=== PATIENT | male | born 1970 ===

== ENCOUNTER 2017-11-08 06:53 | Emergency (ER) | payer BC ==
[2017-11-08 07:20] VITALS: TEMP 98.1; O2SAT 96
--- NOTE | 2017-11-08 07:47 | C.PDOC ---
History Of Present Illness 47 y/o M c PMHx HLD p/w rectal pain x 4 months. Pain is described as severe, deep inside, associated with a yellow discharge from the anus, constant, radiating to scrotum. Patient states this pain has been keeping him up at night. He denies fever, chills, chest pain, dyspnea, palpitations, nausea, vomiting, abdominal pain, bleeding, rash, dysuria. Patient has been to other ED twice and followed up with GI, had colonoscopy and endoscopy and CT scan without any abnormal findings as per patient. He has been on Cipro, analgesia, AZO without any relief. PMD Yonny Sim Time Seen by Provider: 11/08/17 07:33 Chief Complaint (Nursing): Male Genitourinary Past Medical History Vital Signs: Last Vital Signs Temp 98.1 F 11/08/17 07:15 Pulse 76 11/08/17 09:52 Resp 18 11/08/17 09:52 BP 115/69 11/08/17 09:52 Pulse Ox 96 11/08/17 10:14 Family History: States: No Known Family Hx - Social History Hx Alcohol Use: No Hx Substance Use: No - Immunization History Hx Tetanus Toxoid Vaccination: Yes Hx Influenza Vaccination: Yes Hx Pneumococcal Vaccination: No Review Of Systems Except As Marked, All Systems Reviewed And Found Negative. Constitutional: Negative for: Fever Cardiovascular: Negative for: Chest Pain Physical Exam - Physical Exam Additional Physical Exam Comments: Gen: NAD Head: NC Eyes: No scleral icterus ENT: MMM Neck: Supple Chest: No tenderness CV: Regular rate Lungs: CTA b/l Abd: Soft, NT Back: No CVA tenderness : Uncircumcised, no discharge, no erythema, no swelling, no testicular tenderness or swelling Rectal: No mass, bleeding, discharge, fissures Skin: No rash Neuro: Alert, no focal deficit ED Course And Treatment - Laboratory Results Result Diagrams: 11/08/17 09:29 11/08/17 09:29 O2 Sat by Pulse Oximetry: 96 Medical Decision Making Medical Decision Making: Patient with significant evaluation for these symptoms. Will send today for testicular ultrasound and check labs/urine. In absence of any findings today, will recommend that patient follow up with urology. Disposition - Disposition Referrals: Nazario Mathis MD [Staff Provider] - Disposition: HOME/ ROUTINE Disposition Time: 10:14 Condition: STABLE Additional Instructions: Accession No. 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 COMPARISON: None Available. FINDINGS: RIGHT TESTICLE: Measures 4.79 x 2 x 2.9 cm. Normal echotexture and flow. RIGHT EPIDIDYMIS: Epididymal head measures 1.1 x 0.7 x 0.6 cm. There is a cyst seen at the right epididymis measures 0.44 x 0.4 x 0.4 centimeter. LEFT TESTICLE: Measures 4.8 x 2.2 x 2.7 cm. Normal echotexture and flow. LEFT EPIDIDYMIS: Epididymal head measures 1 x 0.6 x 0.66 cm. There is a cyst seen at the left epididymal head measures0.44 x 0.4 x 0.5 centimeter. HYDROCELE: Small bilateral hydroceles. VARICOCELE: None. OTHER FINDINGS: None. IMPRESSION: No evidence of testicular torsion or mass. Small bilateral epididymal cyst. Small bilateral hydroceles. Instructions: Hydrocele Forms: Kensho (Hungarian) - Clinical Impression Clinical Impression: Hydrocele
[2017-11-08] MEDS ORDERED: Morphine 4 MG/ML VIAL ONE ×2 (08:10→10:51)
[2017-11-08 09:36] LABS: BASO % 0.5 % (0.0-2.0); EOS # 0.2 K/uL (0.0-0.7); EOS % 3.4 % (0.0-4.0); HEMOGLOBIN 15.3 g/dL (12.0-18.0); LYMPH # 1.1 K/uL (1.0-4.3); LYMPH % 20.6 % (20.0-40.0); MEAN CELL VOLUME 93.6 fL (80.0-94.0); MEAN CORPUSCULAR HEMOGLOBIN 32.6 pg (27.0-31.0); MEAN CORPUSCULAR HGB CONC 34.8 g/dL (33.0-37.0); MEAN PLATELET VOLUME 9.9 fL (7.2-11.7); MONO # 0.4 K/uL (0.0-0.8); MONO % 7.8 % (0.0-10.0); NEUT # 3.6 K/uL (1.8-7.0); NEUT % 67.7 % (50.0-75.0); NRBC % 0.1 % (0.0-2.0); RBC 4.69 Mil/uL (4.40-5.90); RED CELL DISTRIBUTION WIDTH 12.9 % (11.5-14.5); WHITE BLOOD COUNT 5.3 K/uL (4.8-10.8)
[2017-11-08 09:44] LABS: URINE BILIRUBIN NEGATIVE (NEGATIVE); URINE BLOOD NEGATIVE (NEGATIVE); URINE CLARITY Clear (Clear); URINE GLUCOSE (UA) NORMAL (Normal); URINE LEUKOCYTE ESTERASE NEG Leu/uL (Negative); URINE NITRATE NEGATIVE (NEGATIVE); URINE PROTEIN NEGATIVE (NEGATIVE); URINE UROBILINOGEN NORMAL mg/dL (0.2-1.0)
[2017-11-08 09:45] LABS: URINE COLOR YELLOW (YELLOW)
[2017-11-08 09:49] LABS: ALB/GLOB RATIO 1.6 (1.0-2.1); ALBUMIN 4.2 g/dL (3.5-5.0); ALT/SGPT 20 U/L (21-72); AST/SGOT 23 U/L (17-59); BLOOD UREA NITROGEN 11 mg/dL (9-20); CALCIUM 8.9 mg/dl (8.6-10.4); GFR AFRICAN-AMERICAN > 60; GFR NON-AFRICAN AMERICAN > 60
--- NOTE | 2017-11-08 10:01 | US ---
HISTORY: testicular pain, r/o torsion TECHNIQUE: Realtime sonography through the scrotum with color and doppler flow. COMPARISON: None Available. FINDINGS: RIGHT TESTICLE: Measures 4.79 x 2 x 2.9 cm. Normal echotexture and flow. RIGHT EPIDIDYMIS: Epididymal head measures 1.1 x 0.7 x 0.6 cm. There is a cyst seen at the right epididymis measures 0.44 x 0.4 x 0.4 centimeter. LEFT TESTICLE: Measures 4.8 x 2.2 x 2.7 cm. Normal echotexture and flow. LEFT EPIDIDYMIS: Epididymal head measures 1 x 0.6 x 0.66 cm. There is a cyst seen at the left epididymal head measures0.44 x 0.4 x 0.5 centimeter. HYDROCELE: Small bilateral hydroceles. VARICOCELE: None. OTHER FINDINGS: None. IMPRESSION: No evidence of testicular torsion or mass. Small bilateral epididymal cyst. Small bilateral hydroceles.
[2017-11-08 10:37] VITALS: RESP 18
[2017-11-08 11:51] VITALS: BP 110/77; PULSE 98
== END 2017-11-08 11:45 | disposition home or self-care (01) ==
LOC: C.ER 06:53
DX: N43.3 Hydrocele, unspecified (principal)
CPT/HCPCS: 76870; 80053; 81001; 85025; 87086; 87491; 87591; 96374; 96375; 96376; 99284; J2270; J2405